=== PATIENT | male | born 1980 | race Caucasian/White ===

== ENCOUNTER 2023-05-12 21:49 | Emergency (ER) | payer OTHER, MEDICAID ==
[2023-05-12] MEDS ORDERED: cefTRIAXone 1 GM, Lidocaine 1% 2.1 ML IM ONE ×2 (22:27)
== END 2023-05-12 22:49 | disposition home or self-care (01) ==
LOC: JD.ED 21:49
DX: H66.92 Otitis media, unspecified, left ear (principal); Z88.8 Allergy status to other drugs, medicaments and biological substances; F17.210 Nicotine dependence, cigarettes, uncomplicated
CPT/HCPCS: 96372; 99282; J0696; 99283; J3490

== ENCOUNTER 2023-12-12 22:40 | Emergency (ER) | payer MEDICAID, OTHER ==
[2023-12-12] MEDS: Amoxicillin/Clavulanate K 875-125 MG Tab PO ONE (23:31)
[2023-12-12] MEDS: prednisoLONE Soln 15 MG/5 ML UD Cup PO ONE (23:31)
[2023-12-12] MEDS: Ketorolac 60 MG/2 ML SDV IM ONE (23:32)
== END 2023-12-12 23:37 | disposition home or self-care (01) ==
LOC: JD.ED 22:40
DX: H66.92 Otitis media, unspecified, left ear (principal); Z88.6 Allergy status to analgesic agent; Z88.8 Allergy status to other drugs, medicaments and biological substances
CPT/HCPCS: 96372; 99282; A9270; J1885; 99283